=== PATIENT | female | born 1990 | race Caucasian/White ===

== ENCOUNTER 2020-03-18 15:59 | Day surgery (SDC) | payer BC ==
[~2020-03-18] VITALS: Ht 165.1 cm; Wt 55.5 kg
--- NOTE | 2020-03-18 16:10 | NUR ---
Pt arrives on unit ambulatory for D&C. Changed into clean gown. Orders for CBC/T&S with preop meds. See EMAR. IV started in LF. Labs drawn. LR infusing. Admission assessment completed. Consents signed. Pt updated on POC. No questions or concerns at this time.
[2020-03-18 17:05] LABS: BASO % 0.3 % (0.0-2.0); EOS # 0.1 (0.0-0.7); EOS % 0.9 % (0-4.0); GRAN # 10.1 (1.4-6.5); GRAN % 77.3 % (42.2-75.2); HEMATOCRIT 37.4 % (37.0-47.0); HEMOGLOBIN 12.7 g/dl (12.5-16.0); LYMPH # 1.8 (1.2-3.4); LYMPH % 13.6 % (20.0-51.0); MEAN CELL VOLUME 89 fl (80.0-100.0); MEAN CORPUSCULAR HEMOGLOBIN 30 pg (27.0-31.0); MEAN CORPUSCULAR HGB CONC 34 g/dl (33.0-37.0); MEAN PLATELET VOLUME 9.9 fl (7.4-10.4); MONO % 7.4 % (1.7-9.3); PLATELET COUNT 317 K/mm3 (130-400); RED BLOOD COUNT 4.19 M/mm3 (4.10-5.30); REDCELL DISTRIBUTION WIDTH-CV 12.1 % (11.5-14.5)
[2020-03-18] MEDS ORDERED: CYMBALTA 60MG60 MG PO (17:15)
--- NOTE | 2020-03-18 19:05 | NUR ---
Pt arrived to unit from Main OR with OR nurse Rina Shrestha CRNA. Pt in bed, alert and oriented x 4 but still drowsy. IV in left forearm, fluids running by gravity. Mesh panties and peripad applied. Bedside report completed. Vital signs obtained.
[2020-03-18 19:10] VITALS: BP 118/75; PULSE 74; TEMP 98.1
[2020-03-18 19:25] VITALS: BP 118/76; PULSE 67
[2020-03-18 19:40] VITALS: BP 126/78; PULSE 72
[2020-03-18 19:55] VITALS: BP 116/59; PULSE 69
[2020-03-18 20:25] VITALS: BP 107/53; PULSE 65
--- NOTE | 2020-03-18 20:30 | NUR ---
Pt able to ambulate to bathroom and void 200 mL bloody urine. Pt denies pain at this time, just mild discomfort. Pt has been able to tolerate water and toast. Vital signs within normal range. Discussed discharge plan, pt verbalized ok to discharge home at this time.
[2020-03-18 20:55] VITALS: BP 110/60; PULSE 70
--- NOTE | 2020-03-18 21:00 | NUR ---
IV out, discharge education reviewed with patient, verbalized understanding. Offered wheelchair ride but patient desires to ambulate. Ambulated off unit with belongings accompanied by L&D staff.
== END 2020-03-18 21:00 | disposition home or self-care (01) ==
LOC: SDCO 15:59 → OB 16:00 → SDCO 18:00
PROVIDERS: Obstetrics & Gynecology
DX: O02.1 Missed abortion (principal); Z88.2 Allergy status to sulfonamides
CPT/HCPCS: OP; J1885; J2704; J3010; J7120

== ENCOUNTER 2021-03-25 09:55 | Outpatient (CLI) | payer OTHER ==
[~2021-03-25] VITALS: Ht 162.6 cm; Wt 75.0 kg
[2021-03-25] VITALS (7 sets, daily range): BP systolic 120–139; BP diastolic 73–87; PULSE 71–88; TEMP 97.9
--- NOTE | 2021-03-25 09:10 | NUR ---
While working on the unit pt reports concerns with elevated blood pressure. Pt ambulatory to LR3. Pt reports headache and blurry vision/seeing spots last evening but better this morning. Pt also reports occasional contractions but nothing consistent or painful, denies any leaking of fluid or vaginal bleeding and reports normal movement. EFM and toco monitors started. Dr. Xiong on the unit. Orders for serial BP checks and labs received. Plan of care reviewed with pt.
[~2021-03-25 09:55] MED LIST: COLACE 100100 MG/CAP PO; CYMBALTA 60MG60 MG PO; MAGNESIUM200 MG PO; NATURAL IRON65 MG; PRENATAL; UNISOM25 MG PO; ZOLOFT 50MG50 MG PO
[2021-03-25 10:01] LABS: COLLECTION METHOD CLEAN CATCH
[2021-03-25 10:05] LABS: BASO % 0.3 % (0.0-2.0); EOS # 0.3 K/mm3 (0.0-0.7); EOS % 2.5 % (0.0-4.0); GRAN # 9.1 K/mm3 (1.4-6.5); GRAN % 71.8 % (42.2-75.2); HEMATOCRIT 35.7 % (37.0-47.0); LYMPH # 1.8 K/mm3 (1.2-3.4); LYMPH % 14.5 % (20.0-51.0); MEAN CELL VOLUME 92 fl (80.0-100.0); MEAN CORPUSCULAR HEMOGLOBIN 31 pg (27-31); MEAN CORPUSCULAR HGB CONC 34 g/dl (33.0-37.0); MEAN PLATELET VOLUME 11.3 fl (7.4-10.4); MONO # 1.3 K/mm3 (0.1-0.6); MONO % 10.2 % (1.7-9.3); PLATELET COUNT 209 K/mm3 (130-400); RED BLOOD COUNT 3.87 M/mm3 (4.10-5.30); REDCELL DISTRIBUTION WIDTH-CV 12.6 % (11.5-14.5)
[2021-03-25 10:07] LABS: PH 7 (5-8); URINE APPEARANCE Clear (CLEAR/HAZY); URINE BACTERIA Rare /hpf (NONE SEEN); URINE BILIRUBIN Negative (NEGATIVE); URINE BLOOD Negative (NEGATIVE); URINE COLOR Yellow (YELLOW); URINE GLUCOSE Negative (NEGATIVE); URINE KETONE Negative (NEGATIVE); URINE LEUKOCYTE ESTERASE Negative (NEGATIVE); URINE NITRATE Negative (NEGATIVE); URINE PROTEIN(semi-quant) Negative (NEGATIVE); URINE RBC 0-2 /hpf (0-2); URINE UROBILINOGEN Negative (NEGATIVE); URINE WBC 0-2 /hpf (0-2)
[2021-03-25 10:24] LABS: ALBUMIN 2.9 gm/dL (3.5-5.0); BILIRUBIN,TOTAL 0.3 mg/dL (0.2-1.2); CALCIUM 8.6 mg/dL (8.4-10.2); CREATININE, serum 0.65 mg/dL (0.57-1.11); TOTAL PROTEIN 6.4 gm/dL (6.2-8.1)
--- NOTE | 2021-03-25 10:55 | NUR ---
Discharge instructions and follow up care reviewed with pt. Pt verbalized an understanding, agreed with the plan and states no questions or concerns at this time.
== END 2021-03-25 11:15 | disposition home or self-care (01) ==
LOC: LDRO 09:55
PROVIDERS: Student in an Organized Health Care Education/Training Program
DX: O26.893 Other specified pregnancy related conditions, third trimester (principal); R51.9 Headache, unspecified; O62.9 Abnormality of forces of labor, unspecified; Z3A.37 37 weeks gestation of pregnancy

== ENCOUNTER → 2021-03-30 | Outpatient (CLI) | payer OTHER ==
[~2021-03-30] MED LIST changes: +MOTRIN 800800 MG/TAB PO; +NORCO 325 MG-51 TAB PO
[2021-03-30 13:02] LABS: BASO % 0.3 % (0.0-2.0); EOS # 0.3 K/mm3 (0.0-0.7); EOS % 2.7 % (0.0-4.0); GRAN # 8.6 K/mm3 (1.4-6.5); GRAN % 71.9 % (42.2-75.2); HEMOGLOBIN 12.3 g/dl (12.5-16.0); LYMPH # 1.8 K/mm3 (1.2-3.4); MEAN CELL VOLUME 90 fl (80.0-100.0); MEAN CORPUSCULAR HEMOGLOBIN 31 pg (27-31); MEAN CORPUSCULAR HGB CONC 35 g/dl (33.0-37.0); MEAN PLATELET VOLUME 11.5 fl (7.4-10.4); MONO # 1.1 K/mm3 (0.1-0.6); MONO % 9.4 % (1.7-9.3); PLATELET COUNT 210 K/mm3 (130-400); RED BLOOD COUNT 3.95 M/mm3 (4.10-5.30); REDCELL DISTRIBUTION WIDTH-CV 12.3 % (11.5-14.5)
[2021-03-30 13:03] LABS: HEMATOCRIT 35.6 % (37.0-47.0)
[2021-03-30 13:17] LABS: BILIRUBIN,TOTAL 0.4 mg/dL (0.2-1.2); CALCIUM 8.9 mg/dL (8.4-10.2); CREATININE, serum 0.68 mg/dL (0.57-1.11); POTASSIUM 3.8 mmol/L (3.5-4.5); TOTAL PROTEIN 6.7 gm/dL (6.2-8.1)
[2021-03-30 13:23] LABS: PROTEIN, TOTAL URINE random <7 mg/dL
[2021-03-30 13:32] LABS: URINE TOTAL VOLUME - 24 HRS 3500 mL/24 hr
== END ==
LOC: COL.LAB 12:26
PROVIDERS: Obstetrics & Gynecology
DX: O99.891 Other specified diseases and conditions complicating pregnancy (principal); R03.0 Elevated blood-pressure reading, without diagnosis of hypertension; Z3A.00 Weeks of gestation of pregnancy not specified

== ENCOUNTER 2021-03-31 14:49 | Outpatient (CLI) | payer OTHER ==
[~2021-03-31] VITALS: Ht 162.6 cm; Wt 74.5 kg
--- NOTE | 2021-03-31 14:35 | NUR ---
PT ARRIVES TO UNIT WITH C/O DECREASED MOVEMENT TODAY AND ELEVATED BP IN OFFICE. DULL HEADACHE FOR PAST WEEK, DOES NOT TAKE TYLENOL FOR IT. HAD LABWORK AND 24 HR URINE DONE 03/30/20. RESULTS DOCUMENTED IN PRENATALS BY DR BARRERA AND NOTED NORMAL. EFM PLACED, FHR 135 WITH MODERATE VARIABILITY, UTERINE IRRITABILITY NOTED. BP 143/83-LOWER THAN INITIAL OFFICE READING TODAY. ASSESSMENT COMPLETED, MEDS REVIEWED.
[2021-03-31 14:45] VITALS: BP 143/83; PULSE 78; TEMP 98.4
[~2021-03-31 14:49] MED LIST changes: -MOTRIN 800800 MG/TAB PO; -NORCO 325 MG-51 TAB PO
[2021-03-31 15:00] VITALS: BP 130/80; PULSE 69
--- NOTE | 2021-03-31 15:11 | NUR ---
DR WHATLEY CALLED-SEE PHYSICIAN NOTIFICATION. DISCHARGE ORDER RECEIVED.
[2021-03-31 15:12] VITALS: BP 132/77; PULSE 74
--- NOTE | 2021-03-31 15:35 | NUR ---
PT DISCHARGE TEACHING REVIEWED AND SIGNED. QUESTIONS INVITED AND ANSWERED. PT AMBULATORY FOR DISCHARGE.
== END 2021-03-31 15:35 | disposition home or self-care (01) ==
LOC: LDRO 14:49 → LDR 15:33 → LDRO 15:35
DX: O16.3 Unspecified maternal hypertension, third trimester (principal); O26.93 Pregnancy related conditions, unspecified, third trimester; R51.9 Headache, unspecified; Z3A.38 38 weeks gestation of pregnancy
CPT/HCPCS: OP

== ENCOUNTER 2021-04-01 09:48 | Inpatient (IN) | payer SELFPAY ==
[~2021-04-01] VITALS: Ht 165.1 cm; Wt 74.5 kg
[2021-04-02] VITALS (20 sets, daily range): BP systolic 130–173; BP diastolic 65–109; PULSE 72–105; TEMP 97.7–97.9
--- NOTE | 2021-04-02 05:50 | NUR ---
Patient ambulatory to room 221 for scheduled primary . Patient changed into gown, wedged left in bed. EFMs explained and applied. VSS. Consents signed. Plan of care reviewed.
[2021-04-02 06:21] LABS: BASO % 0.3 % (0.0-2.0); EOS # 0.4 K/mm3 (0.0-0.7); EOS % 2.9 % (0.0-4.0); GRAN # 8.9 K/mm3 (1.4-6.5); GRAN % 68.6 % (42.2-75.2); HEMOGLOBIN 12.7 g/dl (12.5-16.0); LYMPH # 2.3 K/mm3 (1.2-3.4); LYMPH % 17.4 % (20.0-51.0); MEAN CELL VOLUME 89 fl (80.0-100.0); MEAN CORPUSCULAR HEMOGLOBIN 31 pg (27-31); MEAN CORPUSCULAR HGB CONC 34 g/dl (33.0-37.0); MEAN PLATELET VOLUME 11.3 fl (7.4-10.4); MONO # 1.3 K/mm3 (0.1-0.6); MONO % 10.1 % (1.7-9.3); PLATELET COUNT 224 K/mm3 (130-400); RED BLOOD COUNT 4.14 M/mm3 (4.10-5.30); REDCELL DISTRIBUTION WIDTH-CV 12.3 % (11.5-14.5)
[2021-04-02 06:25] LABS: HEMATOCRIT 36.9 % (37.0-47.0)
[2021-04-02] MEDS ORDERED: MOTRIN 800800 MG/TAB PO (11:49)
[2021-04-02] MEDS ORDERED: NORCO 325 MG-51 TAB PO (11:50)
[2021-04-03 05:10] VITALS: BP 132/80; PULSE 82; TEMP 98.3
[2021-04-03 07:25] VITALS: BP 147/92; PULSE 80; TEMP 97.7
[2021-04-03 12:30] VITALS: BP 136/75; PULSE 75; TEMP 97.7
--- NOTE | 2021-04-03 13:02 | NUR ---
Coater [employer] Insulation Board stopped by and nothing needed at this time.
[2021-04-03 16:00] VITALS: BP 126/79; PULSE 73; TEMP 97.6
[2021-04-03 18:45] VITALS: BP 135/86; PULSE 89; TEMP 98
[2021-04-04 07:45] VITALS: BP 130/81; PULSE 72; TEMP 97.8
== END 2021-04-04 13:15 | disposition home or self-care (01) | DRG 787 ==
LOC: OB 04-02 05:37 → LDR 04-02 09:24 → OB 04-02 18:08
PROVIDERS: ADMIT Obstetrics & Gynecology
PROC: 10D00Z1 Extraction of Products of Conception, Low, Open Approach (ICD-10-PCS; principal; 2021-04-02)
DX: O99.344 Other mental disorders complicating childbirth (principal); O72.1 Other immediate postpartum hemorrhage; F41.8 Other specified anxiety disorders; O26.893 Other specified pregnancy related conditions, third trimester; Z67.11 Type A blood, Rh negative; Z3A.39 39 weeks gestation of pregnancy; Z37.0 Single live birth; Z23 Encounter for immunization
CPT/HCPCS: J0690; J1100; J1885; J2405; J2590; J2765; J2791; J7120